=== PATIENT | male | born 1935 | race Caucasian/White ===

== ENCOUNTER 2018-12-22 00:05 | Inpatient (IN) | payer MEDICARE, OTHER ==
[~2018-12-22] VITALS: Ht 177.8 cm; Wt 93.9 kg
[~2018-12-22 00:05] MED LIST: ASPERDRINK81 MG PO; CIPRO500 MG PO; FLOMAX0.4 MG PO; HYDROCODONE-AP1 EAC6 PO; KEFLEX500 MG PO; PRILOSEC 10MG C10 MG PO; ZOCOR40 MG PO; ZOFRAN ODT4 MG SUBLING
[2018-12-22 00:06] VITALS: BP 117/62
[2018-12-22 00:26] LABS: ABSOLUTE LYMPHOCYTES 0.3 thou/uL (0.8-5.3); ABSOLUTE MONOCYTES 0.6 thou/uL (0.0-1.2); ABSOLUTE NEUTROPHILS 4.3 thou/uL (1.6-8.1); BASOPHILS 0.2 %; EOSINOPHILS 0.1 %; HEMATOCRIT 36.5 % (42.0-52.0); HEMOGLOBIN 12.2 gm/dL (14.0-18.0); LYMPHOCYTES 5.2 %; MCH 29.7 pg (26.0-34.0); MCHC 33.4 g/dL (28.0-37.0); MCV 88.7 fL (80.0-100.0); MONOCYTES 12.4 %; MPV 8.9 fl. (7.2-11.1); NUCLEATED RBCS 0 /100WBC; PLATELET COUNT* 145 thou/uL (150-400); POLYS 82.1 %; RBC 4.11 mil/uL (4.50-6.00); RDW-CV 13.6 % (10.5-14.5); WBC 5.2 thou/uL (4.0-11.0)
[2018-12-22 00:39] LABS: APTT 25.2 Seconds (25.0-31.3); PROTIME 10.7 Seconds (9.20-11.50)
[2018-12-22 00:47] LABS: CALCIUM 8.4 mg/dL (8.5-10.1); CREATININE 1.1 mg/dL (0.6-1.3); POTASSIUM 3.9 mmol/L (3.5-5.1)
[2018-12-22 00:59] LABS: ALBUMIN 3.4 g/dL (3.4-5.0); TOTAL BILIRUBIN 0.8 mg/dL (<0.1-1.0); TOTAL PROTEIN 5.9 g/dL (6.4-8.2); TROPONIN-I LEVEL 0.08 ng/mL (<0.06)
[2018-12-22 01:11] LABS: URINE BILIRUBIN NEGATIVE (Negative); URINE BLOOD NEGATIVE (Negative); URINE CLARITY CLEAR; URINE COLOR YELLOW; URINE GLUCOSE-RANDOM NEGATIVE (Negative); URINE KETONES 1+ (Negative); URINE LEUKOCYTES-REFLEX NEGATIVE (Negative); URINE NITRITE-REFLEX NEGATIVE (Negative); URINE PROTEIN NEGATIVE (Negative); URINE UROBILINOGEN 0.2 E.U./dl (0.2-1.0)
[2018-12-22 03:14] VITALS: BP 132/72
[2018-12-22] MEDS ORDERED: ASPIRIN325 PO (03:57)
[2018-12-22] MEDS ORDERED: LATANOPROST2.5 ML OPHTHALMIC (03:59)
[2018-12-22 04:00] VITALS: BP 110/78
[2018-12-22] MEDS ORDERED: XALATAN2.5 ML OPHTHALMIC (04:00)
--- NOTE | 2018-12-22 06:28 | NUR ---
RECEIVED REPORT FROM ED RM. PT TRANSFERRED TO 212. PT A&OX4. HARD OF HEARING. VSS. TELEPHONE ORDER SUPERVISOR IN PLACE. ADMISSION HISTORY & PHYSICAL ASSESSMENT COMPLETED AND CHARTED. ORIENTED TO ROOM & CALL LIGHT. PT TRACING SR PACS ON TELE. PT UPSTANDBY TO RESTROOM. INSTRUCTED ON NPO POST MIDNIGHT FOR CARDIO CONSULT. CALL LIGHT WITHIN REACH.
[2018-12-22 07:10] VITALS: BP 101/60; BP 104/81; BP 107/58
--- NOTE | 2018-12-22 09:58 | NUR ---
Pt is A&O. Resides at home alone. Independent and active. Pt has a walker and cane that he can use if needed, has not needed to use yet. No o2. No hx of HH or SNF. Supportive children that are involved in POC. Goal is home at dc, no needs anticipated.
--- NOTE | 2018-12-22 11:02 | NUR ---
INITAL ASSESSMENT COMPLETED CHARTED. VSS. TRACING SA WITH PVC'S AND PAC'S ON MONITOR. PT DENIES PAIN, CP, SOA, N/V/D, DIZZINESS. ORTHOSTATIC B/P'S NEGATIVE. PT TITRATED DOWN TO 1 LPM AT THIS TIME. NO FURTHER NEEDS AT THIS TIME. HOURLY ROUNDING AND FALL PRECAUTIONS IN PLACE FOR PT SAFETY. CLWR.
[2018-12-22 14:30] VITALS: BP 104/47
--- NOTE | 2018-12-22 15:05 | NUR ---
RADIOLOGIST CALLED AND INFORMED Herminio CAMPOS THAT PT CT SCAN SHOWED LEFT SUBDERAL HEMATOMA. Herminio CAMPOS RELAYED THAT INFORMATION TO THIS NURSE AT THAT TIME. DR. CARRINGTON (FORMERLY RUBEN) ON THE UNIT AND NOTIFIED WELL AT THAT TIME THAT RADIOLOSIST NEEDED HIM TO READ CT SYLVAIN, DR. CARRINGTON ACKNOWLEDGED.
--- NOTE | 2018-12-22 15:12 | NUR ---
DR. ESCOBEDO NOTIFIED OF NERUOLOGY RECOMMENDATIONS.
[2018-12-22 20:00] VITALS: BP 102/55
[2018-12-23] VITALS (7 sets, daily range): BP systolic 100–124; BP diastolic 51–88
[2018-12-23 05:18] LABS: HEMATOCRIT 30.2 % (42.0-52.0); HEMOGLOBIN 10.3 gm/dL (14.0-18.0); MCH 30.4 pg (26.0-34.0); MCHC 34.2 g/dL (28.0-37.0); MCV 88.9 fL (80.0-100.0); MPV 8.9 fl. (7.2-11.1); RBC 3.4 mil/uL (4.50-6.00); RDW-CV 13.7 % (10.5-14.5); WBC 4.5 thou/uL (4.0-11.0)
--- NOTE | 2018-12-23 05:20 | NUR ---
PT ALERT ORIENTED. UP TO BR WITH WALKER AND ASSIST OF ONE. PT DIZZY IN BR. PT TOLD TO VOID IN URINAL AT BS. INITAL O2 SAT 89-90% O2 0.5 L NC. O2 SAT UPP TO 92%. L KNEE BRUSING. TELEMETRY SHOWS SB PACS.
[2018-12-23 05:32] LABS: ALBUMIN 2.6 g/dL (3.4-5.0); CALCIUM 7.7 mg/dL (8.5-10.1); CREATININE 1.1 mg/dL (0.6-1.3); MAGNESIUM 1.8 mg/dL (1.8-2.4); POTASSIUM 3.7 mmol/L (3.5-5.1); TOTAL BILIRUBIN 0.9 mg/dL (<0.1-1.0)
--- NOTE | 2018-12-23 10:19 | NUR ---
INITAL ASSESSMENT COMPLETED CHARTED. TRACING SR-SB WITH PAC'S ON MONITOR. PT LEIGHANN PAIN, DIZZINESS, OR SOA THIS A.M. NO NEW CONCERNS AT THIS TIME. HOURLY ROUNDING AND FALL PRECAUTIONS IN PLACE. CLWR.
--- NOTE | 2018-12-23 11:12 | CON ---
[address] [address] CONSULTATION Name: MORGAN GELLER Room: [address] IN M.R.#: [id number] Admission: 12/22/18 Attend Phys: Heriberto Garza MD Discharge: Date of : 35 Report #: [id number] THIS REPORT FOR: //name// CC: Heriberto Londonlando DATE OF SERVICE: 12/22/2018 HISTORY OF PRESENT ILLNESS: This is an 83-year-old male patient who was evaluated by me for a mechanical fall. This patient tends to underplay his symptoms and that makes the evaluation pretty difficult. He indicates that usually his blood pressure runs low. He does not know why it runs low, but he does not take any antihypertensive. Yesterday, he was walking and realized that his knees buckle down. He felt dizzy. The symptom lasted less than 30 minutes and then resolved by itself. He has no associated headaches and he has been feeling back to his baseline since then. He did not have this kind of episode before. REVIEW OF SYSTEMS: Indicate that he has a large bruise on his right knee. He says that it happened a couple of weeks ago, but it was not because of the fall and it is not because of the present episode of falls. He did run some temperature and chills prior to this mechanical fall. He has some elevated troponin, but he is being worked up by Cardiology for that. Otherwise, he feels back to his baseline. His 14-point review of system was carried out. He had some temperature. He had at one time a pvc monitor. He is not certain why the pvc monitor was put in. 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 He has never been able to do an MRI because they are concerned that he has a metal in there. He has a prior history of urinary tract infection. He is not complaining of any ENT, cardiac, respiratory, GI, , musculoskeletal, dermatological, hematological, psychiatric, throat, allergic symptom associated with present symptomatology. PAST MEDICAL HISTORY: Negative for any stroke. FAMILY HISTORY: Negative for any early age stroke. SOCIAL HISTORY: He says he does drink alcohol. He drinks about 1 alcoholic drink a day. His daughter thinks he may be drinking more than that. PHYSICAL EXAMINATION: Indicates he is alert and responsive. He can follow simple commands. His speech, concentration, fund of knowledge and memory is at his baseline. 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 His strength, sensation, reflexes [place] [id number] CONSULTATION Name: MORGAN GELLER SOPHY Room: [address] IN .R.#: [id number] Admission: 12/22/18 Attend Phys: Heriberto Garza MD Discharge: Date of : 35 Report #: [id number] had some injury to the Achilles tendon in the past. There is no cerebellar sign. I could not look at the fundus on the left side. There is no meningeal sign. He is moderately built individual who does not have any dysmorphic features of eyes, ears and face. He has a prosthetic right eye. Cardiac examination is unremarkable. No respiratory difficulty or rhonchi was noticed. No thyroid mass is present. Pulses are palpable. Blood pressure is 104/81, pulse is 88, and temperature is 98. LABORATORY DATA: Indicate a white count of 5.2. He has been afebrile here. He did not have any imaging study of the brain, but his CT scan and carotid Doppler is pending. IMPRESSION: The most likely scenario in this patient is that his blood pressure is low in the baseline. It probably became low if he did have some temperature and caused this symptom, but we need to exclude the possibility that he does not have any stenosis in any of the large vessels intracranially or extracranially, which became symptomatic with hypertension. I discussed that aspect with the patient. He cannot have an MRI because he has the metal, which is unknown in his eye. He has been told that before. I think we will just check a carotid Doppler and see what it shows. If there is a need for it, we will do a CT angiogram, but presently hold because he just had the dye for another CT looking for any dissection. The patient is agreeable with this plan and he wants to follow this plan. this addendum is being added at the time of signing this note. 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 I talked to Dr. Amin and the nurses. The plan was to back to the neurosurgeon at [place]. The last I talked to Dr. Amin he indicated that he is going to transfer the patient to [facility] under neurosurgery. Time spent 50 minutes. More than 25 minutes counseling and coordinating the patient's care Thank you very much for this referral and if you have any question, please feel free to contact me. <ELECTRONICALLY SIGNED> By: Sravan Kwon MD 12/23/18 1112 1411 58Sravan Kwon MD /nt
--- NOTE | 2018-12-23 14:19 | 2DMMODE ---
[place] [address] 2 D/M-MODE ECHOCARDIOGRAM Name: JENNIFERMORGAN Room: [address] IN [facility]#: [id number] Admission: 12/22/18 Attend Phys: Heriberto Garza, Discharge: Date of : 35 Date of Service: 12/23/18 1419 Report #: [id number] THIS REPORT FOR: //name// APPROVED REPORT Study performed: 12/23/2018 11:40:26 EXAM: Comprehensive 2D, Doppler, and color-flow Echocardiogram Patient Location: In-Patient Room #: [facility] Status: routine BSA: 2.12 HR: 46 bpm BP: 100/51 mmHg Rhythm: NSR Other Information Study Quality: Good Indications Arrhythmia Elevated Troponin Near syncope 2D Dimensions IVSd: 12.79 (7-11mm) LVOT Diam: 23.56 (18-24mm) LVDd: 53.52 mm PWd: 9.99 (7-11mm) Ascending Ao: 40.10 (22-36mm) LVDs: 41.42 (25-40mm) Aortic Root: 39.81 mm Volumes Left Atrial Volume (Systole) LA ESV Index: 53.00 mL/m2 Aortic Valve AoV Peak Negrito.: 1.45 m/s AO Peak Gr.: 8.41 mmHg LVOT Max P.78 mmHg AO Mean Gr.: 4.39 mmHg LVOT Mean P.50 mmHg LVOT Max V: 1.09 m/s AO V2 VTI: 31.93 cm LVOT Mean V: 0.73 m/s YANELY (VTI): 3.71 cm2 LVOT V1 VTI: 27.20 cm AI Lawrence: 1.29 m/s2 AI PHT: 713.93 [place] [address] 2 D/M-MODE ECHOCARDIOGRAM Name: MORGAN GELLER Room: [address] IN [facility].#: [id number] Admission: 12/22/18 Attend Phys: Heriberto Garza, Discharge: Date of : 35 Date of Service: 12/23/18 1419 Report #: [id number] Mitral Valve E/A Ratio: 0.99 MV Decel. Time: 232.06 ms MV E Max Negrito.: 0.94 m/s MV PHT: 67.30 ms MVA (PHT): 3.27 cm2 TDI E/Lateral E': 9.40 E/Medial E': 13.43 Medial E' Negrito.: 0.07 m/s Lateral E' Negrito.: 0.10 m/s Pulmonary Valve PV Peak Negrito.: 0.84 m/s PV Peak Gr.: 2.82 mmHg Tricuspid Valve RAP Estimate: 10.00 mmHg TR Peak Gr.: 27.96 mmHg RVSP: 38.00 mmHg PA Pressure: 38.00 mmHg Left Ventricle The left ventricle is normal size. There is mild global hypokinesis of the left ventricle.The inferior segment is moderately hypokinetic. There is normal left ventricular wall thickness. Left ventricular systolic function is mildly decreased. LVEF is 45%. The left ventricular diastolic function is normal. Right Ventricle Right ventricle is dilated. The right ventricular systolic function is normal. Atria Left atrium is severely dilated. Right atrium is dilated. Aortic Valve The aortic valve is normal in structure. Mild aortic regurgitation. There is no aortic valvular stenosis. Mitral Valve The mitral valve is normal in structure. Mild mitral regurgitation. No evidence of mitral valve stenosis. Tricuspid Valve The tricuspid valve is normal in structure. Mild tricuspid regurgitation. [place] [address] 2 D/M-MODE ECHOCARDIOGRAM Name: MORGAN GELLER Room: [address]#: [id number] Admission: 12/22/18 Attend Phys: Heriberto Garza, Discharge: Date of : 35 Date of Service: 12/23/18 1419 Report #: [id number] Pulmonic Valve The pulmonary valve is normal in structure. There is no pulmonic valvular regurgitation. Great Vessels The aortic root is normal in size. IVC is dilated. Pericardium There is no pericardial effusion. <Conclusion> LVEF is 45%. There is mild global hypokinesis of the left ventricle.The inferior segment is moderately hypokinetic. Left atrium is severely dilated. There is no aortic valvular stenosis. Mild aortic regurgitation. Mild mitral regurgitation. No evidence of mitral valve stenosis. <ELECTRONICALLY SIGNED> By: Raji Nova MD, FACC 12/23/18 1419 1419 1419 Raji Nova MD, FACC /INF
--- NOTE | 2018-12-23 14:27 | EKG ---
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: BRIGETTE : 1935 Requested By: Joe Solomon Order Number: [id number] MD: Raji Nova Measurements Intervals [place] Rate: 91 P: 22 LA: 162 QRS: -61 QRSD: 120 T: 93 QT: 364 QTc: 448 Interpretive Statements Sinus rhythm Left anterior fascicular block Nonspecific T abnormalities, lateral leads Compared to ECG 11/05/2013 10:14:51 T-wave abnormality now present Sinus tachycardia no longer present Electronically Signed On 12-23-2018 14:27:12 CDT by Raji Nova [email or web address] <ELECTRONICALLY SIGNED> By: Raji Nova MD, FAC 12/23/18 1427 0033 0033 Raji Nova MD, FAC /EPI
[2018-12-24] VITALS (7 sets, daily range): BP systolic 100–120; BP diastolic 50–82
[2018-12-24 05:05] LABS: HEMATOCRIT 31.1 % (42.0-52.0); HEMOGLOBIN 10.8 gm/dL (14.0-18.0); MCH 30.6 pg (26.0-34.0); MCHC 34.6 g/dL (28.0-37.0); MCV 88.4 fL (80.0-100.0); MPV 9.4 fl. (7.2-11.1); RBC 3.52 mil/uL (4.50-6.00); RDW-CV 13.3 % (10.5-14.5); WBC 3.6 thou/uL (4.0-11.0)
[2018-12-24 05:08] LABS: CALCIUM 7.7 mg/dL (8.5-10.1); MAGNESIUM 1.8 mg/dL (1.8-2.4); POTASSIUM 3.9 mmol/L (3.5-5.1)
--- NOTE | 2018-12-24 06:30 | NUR ---
VITALS STABLE,TMAX 99.4F. INTERMITTENT SLEEP THROUGH THE NIGHT. ABLE TO USE WALKER TO USE BATHROOM. PATIENT VERY EMOTIONAL, TEARFUL WHEN TALKING ABOUT THAT A COUPLE OF MONTHS AGO. REPORTS HE WAS PUT ON ANTIDEPRESSANT MEDICATION AND A GRIEF COUSELOR COMES TO HIS HOUSE PER HIS DOCTOR. OTHERWISE NO CONCERNS. ABLE TO USE CALL LIGHT. ABLE TO TURN SELF IN BED.
--- NOTE | 2018-12-24 10:38 | NUR ---
Spoke with Pt's dtr regarding disposition. Dtr plans on staying with Pt for a few days post dc and wants Pt to have [facility] HH. Initial referral sent to [facility], they are able to accept. DC orders to be faxed once available [phone]
--- NOTE | 2018-12-24 17:43 | NUR ---
12/24 Days: Hem-Onc consult. Plan for discharge tomorrow if cleared by Hem-Onc, discharge orders in chart from hospitalist. Mobility increased today, patient states he feels closer to his baseline. Abdominal US in morning, patient to be NPO after midnight, restart diet after. Bed alarm off when family in room, has been call light appropriate.
[2018-12-25] VITALS (8 sets, daily range): BP systolic 83–142; BP diastolic 50–82
[2018-12-25 05:34] LABS: HEMATOCRIT 34.6 % (42.0-52.0); HEMOGLOBIN 11.5 gm/dL (14.0-18.0); MCH 29.3 pg (26.0-34.0); MCHC 33.1 g/dL (28.0-37.0); MCV 88.4 fL (80.0-100.0); MPV 9.4 fl. (7.2-11.1); RBC 3.91 mil/uL (4.50-6.00); RDW-CV 13.7 % (10.5-14.5); WBC 2.9 thou/uL (4.0-11.0)
[2018-12-25 05:39] LABS: PROTIME 10.7 Seconds (9.20-11.50)
[2018-12-25 05:55] LABS: ALBUMIN 2.8 g/dL (3.4-5.0); CREATININE 0.9 mg/dL (0.6-1.3); TOTAL BILIRUBIN 0.6 mg/dL (<0.1-1.0); TOTAL PROTEIN 5.4 g/dL (6.4-8.2)
[2018-12-25 18:47] LABS: URINE BILIRUBIN NEGATIVE (Negative); URINE BLOOD 3+ (Negative); URINE CLARITY CLEAR; URINE COLOR YELLOW; URINE GLUCOSE-RANDOM NEGATIVE (Negative); URINE KETONES NEGATIVE (Negative); URINE LEUKOCYTES NEGATIVE (Negative); URINE NITRITE NEGATIVE (Negative); URINE PROTEIN NEGATIVE (Negative); URINE UROBILINOGEN 0.2 E.U./dl (0.2-1.0)
[2018-12-25 18:54] LABS: MUCUS None Seen strn/LPF (None Seen); SQUAMOUS NONE SEEN /LPF (0-3)
[2018-12-25 18:55] LABS: CASTS None Seen /LPF (None Seen); CRYSTALS None Seen /LPF (None Seen); URINE WBC None Seen /HPF (0-5)
[2018-12-25 18:56] LABS: BACTERIA None Seen /HPF (None Seen)
--- NOTE | 2018-12-25 19:46 | NUR ---
ASSUMED PT CARE AT 0730, PT ASLEEP THIS AM, NPO FOR ABD US. PT WAS TAKEN FOR TEST AT APPROX 0800. PT RETRURED TO ROOM AT APPROX 0900. PT PROVIDED WITH BREAKFAST AND ASSEMENT DONE CHARTED. PT DENIES PAIN AT THIS TIME. VSS, SR ON THE MONITOR. PT STARTED HAVING AN EPISODE OF RIGHT SIDE FACIAL DROOP AND SLURRED SPEECH. NOTIFIED. NEW ORDERS RECIEVED. NIH DONE CHARTED. PTS SX RESOLVED W/I 5 MIN. PT ATTEMPTED MULTIPLE TIMES TO VOID, WAS UNABLE TO GET MORE THAN 20 MLS OUT AT A TIME. UROLOGY CONSULTED BLADDER SCAN PERFOMED WITH 650MLS RESIDUAL. ATTEMPTED TO PLACE CATHETER, UNSUCCESSFUL. SPOKE TO UROLOGY SUPERVISOR PUMPING. DR NAVA IN TO SEE PT THIS EVENING WHO PLACE A SUPRAPUBIC CATHETER. PT TOLERATED PROCEDURE WELL. DENIES NEED FOR PAIN MEDS. DRAINED APPROX 900ML POST PROCEDURE W/I 1 HR. PTS DTR UPDATED. VSS, REMAINS SR ON THE MONITOR. IVF RUNNING 80 ML/HR. PT UP WITH ASSIST/WALKER, PT USING CALL LIGHT APROPRIATLY NEEDING SOME REMINDERS. REPORT GIVEN TO DYLLAN TIM.
[2018-12-26] VITALS (7 sets, daily range): BP systolic 91–126; BP diastolic 43–68
--- NOTE | 2018-12-26 04:53 | NUR ---
ASSUMED PT CARE AT APPROX 1930. PT IS AWAKE AND ORIENTED X4, CAN BE FORGETFUL AT TIMES. VSS ON ROOM AIR. WELDING ROBOT OPERATOR IN PLACE TRACING SR BBB. PT C/O BACK PAIN RELIEVED BY DILAUDID GIVEN PER SEP. SUPRA PUBIC CATHETER INTACT AND DRAINING WELL, NOTED MINIMAL BLEEDING ON INSERTION SITE. FALLS PRECAUTIONS IN PLACE. CALL LIGHT WITHIN REACH. HOURLY ROUNDING DONE FOR PT SAFETY.
[2018-12-26 04:55] LABS: HEMATOCRIT 32.8 % (42.0-52.0); HEMOGLOBIN 10.6 gm/dL (14.0-18.0); MCHC 32.4 g/dL (28.0-37.0); MCV 89.5 fL (80.0-100.0); MPV 9.3 fl. (7.2-11.1); RBC 3.67 mil/uL (4.50-6.00)
[2018-12-26 05:28] LABS: ALBUMIN 2.5 g/dL (3.4-5.0); CALCIUM 8.3 mg/dL (8.5-10.1); CREATININE 1.1 mg/dL (0.6-1.3); POTASSIUM 3.9 mmol/L (3.5-5.1); TOTAL BILIRUBIN 0.5 mg/dL (<0.1-1.0); TOTAL PROTEIN 4.9 g/dL (6.4-8.2)
[2018-12-26 06:01] LABS: WBC 1.8 thou/uL (4.0-11.0)
[2018-12-27] VITALS (10 sets, daily range): BP systolic 92–123; BP diastolic 50–87
--- NOTE | 2018-12-27 05:15 | NUR ---
ASSUMED PT CARE AT APPROX 1930. PT IS AWAKE AND ORIENTED X4. VSS ON ROOM AIR. STORE CASHIER IN PLACE TRACING SR. REASSESSMENT DONE AND CHARTED. SUPRAPUBIC CATHETER IS NOTED TO BE LEAKNG ON THE INSERTION SITE. CATHETER IS DRAINING WELL, FLUSHED/DEFLATED/REINFLATED BALLOON, BUT IS STILL LEAKING. WILL CONTACT UROLOGY IN THE MORNING. DRESSING KEPT DRY. CALL LIGHT WITHIN REACH. HOURLY ROUNDING DONE FOR PT SAFETY.
[2018-12-27 05:32] LABS: CALCIUM 8.9 mg/dL (8.5-10.1); CREATININE 0.9 mg/dL (0.6-1.3); MAGNESIUM 1.9 mg/dL (1.8-2.4); POTASSIUM 4.2 mmol/L (3.5-5.1)
[2018-12-27 05:48] LABS: HEMATOCRIT 34.9 % (42.0-52.0); HEMOGLOBIN 11.8 gm/dL (14.0-18.0); MCH 29.7 pg (26.0-34.0); MCHC 33.7 g/dL (28.0-37.0); MCV 88.2 fL (80.0-100.0); MPV 9.4 fl. (7.2-11.1); RBC 3.96 mil/uL (4.50-6.00)
--- NOTE | 2018-12-27 10:00 | NUR ---
PT ASSESSMENT COMPLETED CHARTED. VSS. SB-SR ON MONITOR. PT CAN BE TEARFUL AT TIMES. PT LEIGHANN PAIN. HOURLY ROUNDING AND FALL PRECAUTIONS IN PLACE FOR PT SAFETY. CLWR.
--- NOTE | 2018-12-27 16:33 | EEG ---
[address] [address] EEG STUDY REPORT Name: MORGAN GELLER Room: [address]#: [id number] Admission: 12/22/18 Attend Phys: eHriberto Garza MD Discharge: Date of : 35 Report #: [id number] THIS REPORT FOR: //name// CC: Heriberto Michele HISTORY: The patient is an 83-year-old male with altered mental status. An EEG is requested to rule out seizure disorder. DESCRIPTION: The awake record consists of symmetric low amplitude 10 cycles per second posterior dominant rhythm, which is not well formed and is obscured by low amplitude 20-25 cycles per second activity throughout the recording, but predominant over the frontocentral head region. Stage I sleep is characterized by attenuation of the background record. Photic stimulation is non-activating. No focal abnormalities or epileptiform discharges are noted. There is no evidence of seizure activity. <ELECTRONICALLY SIGNED> By: Marine Figueroa DO 12/27/18 1633 1420 1839Marine Figueroa DO /nt
[2018-12-28] VITALS (8 sets, daily range): BP systolic 96–125; BP diastolic 60–73
--- NOTE | 2018-12-28 03:48 | NUR ---
ASSUMED PT CARE AT APPROX 1930. PT IS AWAKE AND ORIENTED X4. VSS ON ROOM AIR. TRACING SR/SB WITH BBB ON TELE. PT DENIES PAIN. REASSESSMENT DONE AND CHARTED. SUPRAPUBIC CATHETER PATENT AND DRAINING WELL BUT IS STILL LEAKING ON INSERTION SITE. UROLOGIST AWARE. SITE KEPT DRY AND CLEAN. PT REPORTED SOME BRIEF TINGLING SENSATION ON HIS RIGHT HAND AND NUMBNESS ON THE RIGHT SIDE OF HIS FACE AT APPROX 0230. NIH PERFORMED CHARTED. CLOSELY MONITORED. NEEDS ATTENDED. FALL PRECAUTIONS IN PLACE. CALL LIGHT WITHIN REACH. HOURLY ROUNDING DONE FOR PT SAFETY.
[2018-12-28 05:03] LABS: HEMATOCRIT 34.6 % (42.0-52.0); HEMOGLOBIN 11.3 gm/dL (14.0-18.0); MCH 29.3 pg (26.0-34.0); MCHC 32.7 g/dL (28.0-37.0); MCV 89.4 fL (80.0-100.0); MPV 8.8 fl. (7.2-11.1); RBC 3.87 mil/uL (4.50-6.00); RDW-CV 13.9 % (10.5-14.5)
[2018-12-28 05:41] LABS: ALBUMIN 2.6 g/dL (3.4-5.0); CALCIUM 8.8 mg/dL (8.5-10.1); CREATININE 1.1 mg/dL (0.6-1.3); POTASSIUM 3.7 mmol/L (3.5-5.1); TOTAL BILIRUBIN 0.4 mg/dL (<0.1-1.0); TOTAL PROTEIN 5.2 g/dL (6.4-8.2)
[2018-12-28 05:50] LABS: WBC 1.3 thou/uL (4.0-11.0)
--- NOTE | 2018-12-28 10:00 | NUR ---
INITIAL ASSESSMENT COMPLETED CHARTED. VSS. TRACING SB-SR ON MONITOR. PT DENIES PAIN. NO "EPISODES" THUS FAR THIS DAY. MINIMAL LEAKAGE FROM SUPRAPUBIC CATH. HOURLY ROUNDING AND FALL PRECAUTIONS IN PLACE. CLWR.
[2018-12-29] VITALS (8 sets, daily range): BP systolic 90–124; BP diastolic 55–75
--- NOTE | 2018-12-29 04:25 | NUR ---
ASSUMED PT CARE AT APPROX 1930. PT IS AWAKE AND ORIENTED X4. VSS ON ROOM AIR. NO DESATURATIONS NOTED. LINEN FOLDER IN PLACE TRACING SB-BBB. ASSESSMENT DONE AND CHARTED. SUPRAPUBIC CATHETER STILL LEAKING, DR BAUTISTA AWARE. PT KEPT CLEAN AND DRY. PT WAS ABLE TO SLEEP MOST OF THE NIGHT. CALL LIGHT WITHIN REACH. HOURLY ROUNDING DONE FOR PT SAFETY.
[2018-12-29 04:38] LABS: HEMATOCRIT 34.6 % (42.0-52.0); HEMOGLOBIN 11.4 gm/dL (14.0-18.0); MCH 29.4 pg (26.0-34.0); MCHC 33.1 g/dL (28.0-37.0); MCV 88.8 fL (80.0-100.0); MPV 8.3 fl. (7.2-11.1); RBC 3.89 mil/uL (4.50-6.00); RDW-CV 13.9 % (10.5-14.5)
[2018-12-29 05:03] LABS: WBC 1.7 thou/uL (4.0-11.0)
[2018-12-29 05:14] LABS: CALCIUM 8.8 mg/dL (8.5-10.1); CREATININE 1.1 mg/dL (0.6-1.3); MAGNESIUM 1.8 mg/dL (1.8-2.4); POTASSIUM 3.6 mmol/L (3.5-5.1)
--- NOTE | 2018-12-29 14:22 | NUR ---
Nutrition: screen for LOS. Wt stable. Prelabumin low but improved. Meds reviewed. No intake records. No note of acute nutrition concerns. Pt sleeping soundly at visit. Assessed at low nutrition risk at this time.
[2018-12-30 00:41] VITALS: BP 128/69
[2018-12-30 05:18] VITALS: BP 120/54
[2018-12-30 05:32] LABS: HEMATOCRIT 35.4 % (42.0-52.0); HEMOGLOBIN 11.9 gm/dL (14.0-18.0); MCH 29.7 pg (26.0-34.0); MCHC 33.6 g/dL (28.0-37.0); MCV 88.4 fL (80.0-100.0); MPV 8.9 fl. (7.2-11.1); RDW-CV 13.7 % (10.5-14.5)
--- NOTE | 2018-12-30 05:45 | NUR ---
ASSUMED PATIENT CARE AT 1900. PATIENT ALERT AND ORIENTED TIMES FOUR. NO COMPLAINTS OF PAIN OR DISCOMFORT NOTED. MELTER CASTER AND HOURLY ROUNDING COMPLETED DOCUMENTED.
[2018-12-30 05:48] LABS: WBC 1.5 thou/uL (4.0-11.0)
[2018-12-30 05:54] LABS: ALBUMIN 2.8 g/dL (3.4-5.0); POTASSIUM 3.7 mmol/L (3.5-5.1); TOTAL BILIRUBIN 0.4 mg/dL (<0.1-1.0); TOTAL PROTEIN 5.3 g/dL (6.4-8.2)
[2018-12-30 08:00] VITALS: BP 115/55
[2018-12-30 11:39] VITALS: BP 101/63
[2018-12-30 12:39] VITALS: BP 100/54
--- NOTE | 2018-12-30 12:41 | NUR ---
Pt discharging to dtr's home today in [place], dtr's [address] is [address] [place] [address]. Dtr to orange picking supervisor at 4pm, updated nurse. DPOA completed, copy on Pt's chart. HH arranged through [facility], orders and referral faxed p:[phone] f:[phone]
[2018-12-30] MEDS ORDERED: OXYBUTYNIN 5 MG5 M2 PO (13:50)
[2018-12-30] MEDS ORDERED: LAMICTAL100 MG PO (13:52)
[2018-12-30] MEDS ORDERED: APAP650 PO (13:57)
[2018-12-30 13:58] VITALS: BP 100/54
--- NOTE | 2018-12-30 14:51 | NUR ---
ASSUMED PT CARE AT 0800. AOX4, UP WITH ASSIST, USES WALKER. PT O2 SAT 90'S RA. TRACING SINUS NGUYEN ON PERINATAL EDUCATOR. PT LUNG SOUND CLEAR. PT LAST BM 12/29/18. ABDOMEN SOFT AND ROUND. PT IV ACCESS INTACT. SUPRAPUBIC CATHETER DRAINING WELL. DENIES ANY PAIN. VSS, AM ASSESSMENT CHARTED MEDS GIVEN PER. CALL LIGHT WITHIN REACH. HOURLY ROUNDING. WILL CONTINUE TO MONITOR.
--- NOTE | 2018-12-30 16:24 | OP ---
[address] [address] OPERATIVE REPORT Name: MORGAN GELLER SOPHY Room: [address] IN .R.#: [id number] Admission: 12/22/18 Attend Phys: Heriberto Garza MD Discharge: Date of : 35 Report #: [id number] THIS REPORT FOR: //name// CC: Heriberto Michele SURGEON: Edwin Valdivia MD MILL TENDER SECOND OPERATOR: Jordin, nurse practitioner. PREOPERATIVE DIAGNOSES: Urinary retention, urethral stricture. POSTOPERATIVE DIAGNOSES: Urinary retention, urethral stricture. PROCEDURES: Percutaneous placement of suprapubic tube and attempted cystoscopy. COMPLICATIONS: No complications. INDICATIONS: An 83-year-old white male admitted for confusion. He was unable to void, residual urine 700 mL. He and his daughter agreed to suprapubic catheter placement. They understand the risks. He has had previous abdominal surgery with an appendectomy, but no other bladder or prostate surgery. They understand risks of bleeding, infection and other procedures, cardiovascular and pulmonary complications, the fact that this is a blind procedure and may result in bowel injury. DESCRIPTION OF PROCEDURE: Informed consent was obtained. The patient was sterilely prepped and draped in the supine position. I first attempted a cystoscopy. I could get no further than approximately 1 cm in and then I was able to slide a wire through the channel that was there; however, the wire could not be advanced past the mid urethra. I was unable to dilate the last little bit to get enough traction to perform any other cystoscopy, so I then consulted with the patient and the daughter and we performed suprapubic tube placement without complications. First, I prepped the suprapubic area, anesthetized with lidocaine down to the level of the bladder. I made a 1 cm incision and used a Bard suprapubic tube kit and was able to place the tube with the first pass. We inflated 10 mL in the balloon and the catheter after that slid in easily and also would stop and we pulled it back. Irrigation was completely clear and the urine coming out was light yellow. The patient felt immediate relief. It was then sutured in using 2-0 nylon. The patient tolerated this well and was in no pain after the procedure. <ELECTRONICALLY SIGNED> By: Genaro Frances MD 12/30/18 1624 1830 Walter Valdivia MD /nt
--- NOTE | 2018-12-30 17:00 | NUR ---
DISCHARGED PLAN DISCUSS WITH THE PATIENT AND DAUGHTER. MEDICATION SCRIPT/PACKET GIVEN. REMINDED TO FOLLOW UP WITH PHYSICIANS. TELE, IV REMOVED. ALL BELONGINGS PACKED AND CHECKED. LEFT THE UNIT VIA WHEELCHAIR
--- NOTE | 2019-01-07 13:11 | CON ---
[address] [address] CONSULTATION Name: DUYENMORGANMITCHELL BECKETT Room: [address] IN .R.#: [id number] Admission: 12/22/18 Attend Phys: Heriberto Garza MD Discharge: 12/30/18 Date of : 35 Report #: [id number] THIS REPORT FOR: //name// CC: Heriberto Michele DATE OF SERVICE: 12/22/2018 CHIEF COMPLAINT: Near syncope, fall. HISTORY OF PRESENT ILLNESS: The patient is an 83-year-old man who lives by himself. He presents with a syncopal episode. He fell onto his knees and did not completely lose consciousness. He felt woozy and then used his medical alert device to summons an ambulance and then was brought to the Emergency Room. He presented in a sinus rhythm with sinus arrhythmia and occasional PVCs, but no arrhythmia or heart block was noted. 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 Overnight, he has been receiving IV fluids as he had been treated for probable viral syndrome. He had been having diminished p.o. intake and felt fevers and chills over the weekend. Currently, he is asymptomatic. He denies chest pain, pressure or shortness of breath. He has been somewhat less mobile because of a left lower extremity injury to his Achilles heel and had been wearing a boot for several weeks. He has been having swelling in his leg. He denies orthopnea, PND, chest pressure or tightness. PAST MEDICAL HISTORY: No documented history of heart disease or conduction abnormality. He did wear a cardiac rehabilitation specialist for 30 days, but this was over 10 years ago. He is followed by Dr. Michele from [facility]. He had a venous Doppler of his leg about a year ago for similar complaints of swelling. He has the following past medical history: The aforementioned left Achilles injury, hyperlipidemia, prostatism, acid peptic ulcer disease. HOME MEDICATIONS: Include aspirin, Zocor 40 mg daily, tamsulosin and omeprazole 10 mg. ALLERGIES: He has no known drug allergies. SOCIAL HISTORY: He is a remote smoker. He drinks 3-4 glasses of wine per week. REVIEW OF SYSTEMS: GENERAL: Positive [place]. [place] [address] CONSULTATION Name: MORGAN GELLER SOPHY Room: [address]#: [id number] Admission: 12/22/18 Attend Phys: Heriberto Garza MD Discharge: 12/30/18 Date of : 35 Report #: [id number] EYES: Denies any blurred vision or loss of vision. NEUROLOGIC: Denies seizures. Denies dizziness upon standing. Denies vertigo symptoms. Denies numbness, weakness, visual changes or slurred speech. SKIN: Denies any rash. CARDIOVASCULAR: No chest pain, no palpitation, no dyspnea with exertion, no orthopnea, no PND. RESPIRATORY: He has not been short of breath. Denies cough or hemoptysis. PHYSICAL EXAMINATION: VITAL SIGNS: Blood pressure on presentation was 117/62, pulse was 101 beats per minute, respiratory rate was 18. His weight is 217 pounds. GENERAL: This is a thin elderly male. He is somewhat of a poor historian, but alert, in no apparent distress. NECK: Supple. No jugular venous distention. CARDIOVASCULAR: Regular. I cannot hear a murmur or S3. LUNGS: Clear to auscultation bilaterally. ABDOMEN: Soft, nontender, nondistended. EXTREMITIES: There is no peripheral edema. SKIN: No rashes. IMAGING STUDIES: Chest x-ray shows no cardiopulmonary abnormality. No acute CT evidence of pulmonary embolus. LABORATORY DATA: Hemoglobin is 12.2. Sodium is 136, potassium is 3.9, chloride is 104, BUN is 17, creatinine is 1.1. Troponin I is 0.08, 0.16, 0.25. EKG as noted above shows sinus rhythm, left anterior fascicular block. Normal ST segments. IMPRESSION: 1. Abnormal troponin. I suspect this is probably spurious, but he has borderline resting EKG conduction abnormalities, so I have ordered an echocardiogram. He reports no angina symptoms. Should he have a wall motion abnormality, he will need further testing. 2. Syncope. He has a mild conduction abnormality at rest and his telemetry to date is normal, but he should be wearing a 30-day monitor on discharge. This will be arranged. 3. Left anterior fascicular block. 4. Left lower extremity swelling. We will arrange for a venous Doppler of his left leg. <ELECTRONICALLY SIGNED> By: Raji Nova MD, FACC 01/07/19 1311 1238 [id number] Nova MD, FACC /nt
== END 2018-12-30 17:22 | disposition home health service (06) | DRG 82 ==
LOC: M.ERS 00:05 → M.TBA-ER 01:19 → M.2W 01:19
PROVIDERS: Emergency Medicine Emergency Medical Services; Family Medicine; Nurse Practitioner Adult Health; ADMIT Internal Medicine
PROC: 0T9B30Z Drainage of Bladder with Drainage Device, Percutaneous Approach (ICD-10-PCS; principal; 2018-12-30)
PROC: 0TJB8ZZ Inspection of Bladder, Via Natural or Artificial Opening Endoscopic (ICD-10-PCS; principal; 2018-12-30)
DX: S06.5X9A Traumatic subdural hemorrhage with loss of consciousness of unspecified duration, initial encounter (principal); J96.01 Acute respiratory failure with hypoxia; G93.41 Metabolic encephalopathy; I24.8 Other forms of acute ischemic heart disease; E44.0 Moderate protein-calorie malnutrition; T83.030A Leakage of cystostomy catheter, initial encounter; K44.9 Diaphragmatic hernia without obstruction or gangrene; E78.5 Hyperlipidemia, unspecified; R26.9 Unspecified abnormalities of gait and mobility; R31.29 Other microscopic hematuria; N35.919 Unspecified urethral stricture, male, unspecified site; N28.1 Cyst of kidney, acquired; M50.322 Other cervical disc degeneration at C5-C6 level; D70.9 Neutropenia, unspecified; I95.9 Hypotension, unspecified; R33.9 Retention of urine, unspecified; G43.809 Other migraine, not intractable, without status migrainosus; M50.323 Other cervical disc degeneration at C6-C7 level; I49.3 Ventricular premature depolarization; I10 Essential (primary) hypertension; D69.6 Thrombocytopenia, unspecified; I44.4 Left anterior fascicular block; W18.39XA Other fall on same level, initial encounter; E78.00 Pure hypercholesterolemia, unspecified; H40.9 Unspecified glaucoma; N40.0 Benign prostatic hyperplasia without lower urinary tract symptoms; Z79.82 Long term (current) use of aspirin; Z79.899 Other long term (current) drug therapy; Z84.89 Family history of other specified conditions; Z87.891 Personal history of nicotine dependence; Z85.46 Personal history of malignant neoplasm of prostate; Y92.89 Other specified places as the place of occurrence of the external cause; Y93.89 Activity, other specified; Y99.8 Other external cause status; Z68.29 Body mass index [BMI] 29.0-29.9, adult; Y84.6 Urinary catheterization as the cause of abnormal reaction of the patient, or of later complication, without mention of misadventure at the time of the procedure

== ENCOUNTER 2019-02-06 20:35 | Emergency (ER) | payer MEDICARE, OTHER ==
[~2019-02-06] VITALS: Ht 177.8 cm; Wt 95.9 kg
[~2019-02-06 20:35] MED LIST changes: +APAP650 PO; +ASPIRIN325 PO; +LAMICTAL100 MG PO; +LATANOPROST2.5 ML OPHTHALMIC; +OXYBUTYNIN 5 MG5 M2 PO; +XALATAN2.5 ML OPHTHALMIC
[2019-02-06 21:02] VITALS: BP 120/57
== END 2019-02-06 21:08 | disposition home or self-care (01) ==
LOC: M.ERS 20:35
DX: T83.018A Breakdown (mechanical) of other urinary catheter, initial encounter (principal); N40.0 Benign prostatic hyperplasia without lower urinary tract symptoms; E78.00 Pure hypercholesterolemia, unspecified; Z87.891 Personal history of nicotine dependence

== ENCOUNTER 2020-02-15 23:48 | Emergency (ER) | payer MEDICARE, OTHER ==
[~2020-02-15] VITALS: Ht 177.8 cm; Wt 92.1 kg
[2020-02-16] MEDS ORDERED: [UNRECOGNIZED DRUG - REMARK]
[2020-02-16 00:30] LABS: ABSOLUTE BASOPHILS 0.1 thou/uL (0.0-0.2); ABSOLUTE EOSINOPHILS 0.3 thou/uL (0.0-0.7); ABSOLUTE LYMPHOCYTES 0.8 thou/uL (0.8-5.3); ABSOLUTE MONOCYTES 0.5 thou/uL (0.0-1.2); ABSOLUTE NEUTROPHILS 3.3 thou/uL (1.6-8.1); EOSINOPHILS 5.2 %; HEMATOCRIT 31.2 % (42.0-52.0); HEMOGLOBIN 10.2 gm/dL (14.0-18.0); LYMPHOCYTES 15.7 %; MCH 26.7 pg (26.0-34.0); MCHC 32.6 g/dL (28.0-37.0); MONOCYTES 10.6 %; MPV 8.6 fl. (7.2-11.1); NUCLEATED RBCS 0 /100WBC; PLATELET COUNT* 157 thou/uL (150-400); POLYS 67.5 %; RBC 3.81 mil/uL (4.50-6.00); RDW-CV 16.7 % (10.5-14.5); WBC 4.9 thou/uL (4.0-11.0)
[2020-02-16 00:35] LABS: CALCIUM 8.8 mg/dL (8.5-10.1); CREATININE 1.2 mg/dL (0.6-1.3); POTASSIUM 3.9 mmol/L (3.5-5.1)
[2020-02-16 00:39] LABS: PROTIME 10.6 Seconds (9.20-11.50)
[2020-02-16 00:42] LABS: URINE BILIRUBIN NEGATIVE (Negative); URINE BLOOD 2+ (Negative); URINE CLARITY CLEAR; URINE COLOR STRAW; URINE GLUCOSE-RANDOM NEGATIVE (Negative); URINE KETONES NEGATIVE (Negative); URINE NITRITE-REFLEX NEGATIVE (Negative); URINE PROTEIN NEGATIVE (Negative); URINE SPECIFIC GRAVITY 1.015 (1.005-1.030); URINE UROBILINOGEN 0.2 E.U./dl (0.2-1.0)
[2020-02-16 00:44] LABS: URINE LEUKOCYTES-REFLEX 2+ (Negative)
[2020-02-16 00:46] LABS: ALBUMIN 3.6 g/dL (3.4-5.0); MAGNESIUM 1.9 mg/dL (1.8-2.4); TOTAL BILIRUBIN 0.5 mg/dL (<0.1-1.0)
[2020-02-16 01:09] LABS: CASTS None Seen /LPF (None Seen); SQUAMOUS NONE SEEN /LPF (0-3); URINE WBC-REFLEX >25 Many /HPF (0-5)
[2020-02-16 01:10] LABS: BACTERIA-REFLEX 1-9 Few /HPF (None Seen); CRYSTALS None Seen /LPF (None Seen); URINE RBC 3-10 Few /HPF (0-2); WBC CLUMPS Few (None Seen)
[2020-02-16 03:05] VITALS: BP 123/59
--- NOTE | 2020-02-16 09:44 | EKG ---
[place] [address] ELECTROCARDIOGRAM REPORT Name: MORGAN GELLER Room: 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 <ELECTRONICALLY SIGNED> By: Florentin Guerra MD, FACC 02/16/20 0944 2353 2353 Florentin Guerra MD, FACC /EPI
== END 2020-02-16 03:05 | disposition home or self-care (01) ==
LOC: M.ERS 23:48
PROVIDERS: Emergency Medicine
DX: R07.89 Other chest pain (principal); E78.00 Pure hypercholesterolemia, unspecified; Z87.891 Personal history of nicotine dependence

== ENCOUNTER → 2020-03-15 | Outpatient (CLI) | payer MEDICARE, OTHER ==
[~2020-03-15] MED LIST changes: +[UNRECOGNIZED DRUG - REMARK]
--- NOTE | 2020-03-15 17:36 | 2DMMODE ---
[place] [address] 2 D/M-MODE ECHOCARDIOGRAM Name: MORGAN GELLER SOPHY Room: [facility]#: [id number] Admission: 03/15/20 Attend Phys: Florentin Guerra, Discharge: Date of : 35 Date of Service: 03/15/20 1735 Report #: [id number] THIS REPORT FOR: cc: Herb Michele MD, Louis A. MD Liston, Michael J. MD [facility] ~ APPROVED REPORT Study performed: 03/15/2020 12:53:37 EXAM: Comprehensive 2D, Doppler, and color-flow Echocardiogram Patient Location: Out-Patient BSA: 2.04 HR: 64 bpm BP: 142/80 mmHg Other Information Study Quality: Good Indications Cardiomyopathy Chest Pain 2D Dimensions IVSd: 11.68 (7-11mm) LVOT Diam: 20.79 (18-24mm) LVDd: 50.74 mm PWd: 10.06 (7-11mm) Ascending Ao: 36.23 (22-36mm) LVDs: 40.29 (25-40mm) Aortic Root: 31.44 mm Volumes Left Atrial Volume (Systole) LA ESV Index: 29.60 mL/m2 Aortic Valve AoV Peak Negrito.: 1.39 m/s AO Peak Gr.: 7.77 mmHg LVOT Max P.25 mmHg AO Mean Gr.: 4.03 mmHg LVOT Mean P.17 mmHg LVOT Max V: 1.03 m/s AO V2 VTI: 27.23 cm LVOT Mean V: 0.68 m/s YANELY (VTI): 3.01 cm2 LVOT V1 VTI: 24.15 cm AI [place]: 1.38 m/s2 AI PHT: 659.23 [place] [address] 2 D/M-MODE ECHOCARDIOGRAM Name: MORGAN GELLER Room: [facility]#: [id number] Admission: 03/15/20 Attend Phys: Florentin Guerra, Discharge: Date of : 35 Date of Service: 03/15/20 1735 Report #: [id number] Mitral Valve E/A Ratio: 0.63 MV Decel. Time: 256.92 ms MV E Max Negrito.: 0.58 m/s MV PHT: 74.51 ms MVA (PHT): 2.95 cm2 TDI E/Lateral E': 11.60 E/Medial E': 14.50 Medial E' Negrito.: 0.04 m/s Lateral E' Negrito.: 0.05 m/s Pulmonary Valve PV Peak Negrito.: 0.87 m/s PV Peak Gr.: 3.01 mmHg Tricuspid Valve RAP Estimate: 5.00 mmHg TR Peak Gr.: 22.72 mmHg RVSP: 27.72 mmHg PA Pressure: 27.72 mmHg Left Ventricle The left ventricle is normal size. The basal to mid inferior and basal lateral wall appear severely hypokinetic to akinetic. There is normal left ventricular wall thickness. Left ventricular systolic function is mildly decreased. LVEF is 45-50%. Grade I - abnormal relaxation pattern. Right Ventricle The right ventricle is normal size. The right ventricular systolic function is normal. Atria The left atrium size is normal. The right atrium size is normal. Aortic Valve Mild aortic valve sclerosis. Moderate aortic regurgitation. There is no aortic valvular stenosis. Mitral Valve Mitral valve leaflets are mildly calcified. Mild mitral regurgitation. No evidence of mitral valve stenosis. Tricuspid Valve The tricuspid valve is normal in structure. [place] [address] 2 D/M-MODE ECHOCARDIOGRAM Name: MORGAN GELLER Room: [facility]#: [id number] Admission: 03/15/20 Attend Phys: Florentin Guerra, Discharge: Date of : 35 Date of Service: 03/15/20 1735 Report #: [id number] regurgitation. Pulmonic Valve The pulmonary valve is normal in structure. There is no pulmonic valvular regurgitation. Great Vessels The aortic root is normal in size. IVC is normal in size and collapses >50% with inspiration. Pericardium There is no pericardial effusion. <Conclusion> The left ventricle is normal size. There is normal left ventricular wall thickness. Left ventricular systolic function is mildly decreased. LVEF is 45-50%. Grade I - abnormal relaxation pattern. The basal to mid inferior and basal lateral wall appear severely hypokinetic to akinetic. Moderate aortic regurgitation. Mild mitral regurgitation. Mild tricuspid regurgitation. IVC is normal in size and collapses >50% with inspiration. <ELECTRONICALLY SIGNED> By: Florentin Guerra MD, FACC 03/15/20 1735 1735 1735 Florentin Guerra MD, FACC /INF
--- NOTE | 2020-03-15 17:54 | CARDNUC ---
[place] [address] CARDIAC NUCLEAR IMAGING REPORT Name: MORGAN GELLER SOPHY Room: [facility]#: [id number] Admission: 03/15/20 Attend Phys: Florentin Guerra, Discharge: Date of : 35 Date of Service: 03/15/20 1753 Report #: [id number] THIS REPORT FOR: cc: Herb Michele MD, Louis A. MD Liston, Michael J. MD [facility] ~ APPROVED REPORT Study performed: 03/15/2020 15:31:16 Exam: Nuclear Stress Test Indication: CARDIOMYOPATHY, CHEST DISCOMFORT. Stress Tech: Amy Barahona Stress Nurse: Fernanda Morrison R.N. 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 Medications: Ecotrin ASA, Simvastatin. Allergies: Nitrofuratoin Cardiac Risk Factors: Age, Hyperlipidemia, Past Smoker, Cardiomyopathy, wall motion abnormality, dilated left atrium, mild regurgitation of Aortic valve, Mitral valve, Tricuspid valve. 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 Meds Held (24 hrs): None Stress Test Details Stress Test: Pharmacologic stress testing performed using 0.4 mg of regadenoson per 5 mL given IV over 10 seconds. Reason for pharmacologic stress test: Age related weakness/fatigue, vision impairment/right eye lost/[place] [address] CARDIAC NUCLEAR IMAGING REPORT Name: MORGAN GELLER Room: [facility]#: [id number] Admission: 03/15/20 Attend Phys: Florentin Guerra, Discharge: Date of : 35 Date of Service: 03/15/20 1753 Report #: [id number] Resting HR: 54 bpm Max Heart Rate (APMHR): 135 bpm Max HR Achieved: 96 bpm Target HR (85% APMHR): 114 bpm % of APMHR: 71 Recovery HR: 77 bpm BP Resting BP: 125/61 mmHg Max BP: 117/91 mmHg ECG Resting ECG: Sinus Rhythm, RBBB Stress ECG: Sinus Rhythm, RBBB ST Change: None Arrhythmia: None Recovery ECG: Sinus Rhythm, RBBB Recovery ST Change: None Recovery Arrhythmia: None Clinical Reason for Termination: Completed protocol Stress Symptoms: None Exercise duration: 00 min 00 sec Exercise capacity: 1.00 METs The patient tolerated Lexiscan infusion without significant cardiac symptoms. Nurse Comments AN 85 YEAR OLD MALE PRESENTED FOR A SITTING LEXISCAN R/T CARDIOMYOPATHY AND CHEST DISCOMFORT. TEST WELL TOLERATED. RECOVERY UNREMARKABLE. PATIENT WAS ESCORTED BY STAFF TO NUCLEAR MEDICINE FOR IMAGING. PATIENT WAS STABLE AND STATED HE FELT GOOD AT THAT TIME. Stress ECG Conclusion The baseline twelve-lead EKG shows sinus rhythm without significant ST segment change. Right bundle branch block noted. EKGs obtained during and post Lexiscan infusion showed sinus rhythm with no significant ST segment changes when compared to baseline. There were no stress-induced arrhythmias. NM EXAM: Myocardial Perfusion REST/STRESS Imaging Protocol: Rest Tc-99m/Stress Tc-99m 1 day Resting Data Rest SPECT myocardial perfusion imaging [place] [address] CARDIAC NUCLEAR IMAGING REPORT Name: MORGAN GELLER SOPHY Room: [facility]#: [id number] Admission: 03/15/20 Attend Phys: Florentin Guerra, Discharge: Date of : 35 Date of Service: 03/15/20 1753 Report #: [id number] position 30 minutes following the intravenous injection of 11.6 mCi of Tc-99m Sestamibi. Time of rest injection: 1405 Date: 03/15/2020 The images were gated to evaluate regional wall motion and calculate left ventricular ejection fraction. Administration Route: IV Administration Site: Right Hand Pharmacologic Stress Pharmacologic stress test was performed by injecting Regadenoson 0.4 mg IV push followed by the intravenous injection of 32.4 mCi of Tc-99m Sestamibi. Time of stress injection: 1535 Date: 03/15/2020 Administration Route: IV Administration Site: Right Hand Gated Stress SPECT was performed 40 minutes after stress injection. The images were gated to evaluate regional wall motion and calculate left ventricular ejection fraction. Stress only was performed in the Supine position. Study Quality Study: Good Artifact: No artifact Study Data At rest, the left ventricular ejection fraction was 33%.. Post stress, the left ventricular ejection was 48%.. TID = 0.95. Perfusion Perfusion images show a moderate sized severe intensity fixed defect involving the basal inferior and inferolateral wall without significant ischemia. There is a focal apical defect of moderate intensity that appears fixed. No reversible ischemia was identified. Wall Motion There is apical akinesis. The basal inferior and inferolateral wall is severely hypokinetic. 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 No areas of reversible ischemia were identified. Global LV systolic function appears mild to moderately decreased. This is not a high risk study. <Conclusion> The baseline twelve-lead EKG shows sinus rhythm without significant ST segment change. Right bundle branch block noted. EKGs obtained during and post Lexiscan infusion showed sinus rhythm with no significant ST segment changes when compared to baseline. There were no stress-induced arrhythmias. <ELECTRONICALLY SIGNED> By: Florentin Guerra MD, FACC 03/15/201752 52 52 Florentin Guerra MD, FACC /INF
== END ==
LOC: M.CRD 02-24 12:44
PROVIDERS: ATTEND Internal Medicine Cardiovascular Disease
DX: I08.3 Combined rheumatic disorders of mitral, aortic and tricuspid valves (principal); I42.9 Cardiomyopathy, unspecified; R07.89 Other chest pain; R94.31 Abnormal electrocardiogram [ECG] [EKG]; R55 Syncope and collapse; I20.9 Angina pectoris, unspecified

== ENCOUNTER 2020-12-30 19:01 | Emergency (ER) | payer MEDICARE, OTHER ==
[~2020-12-30] VITALS: Ht 177.8 cm; Wt 87.1 kg
[2020-12-30 20:54] LABS: ABSOLUTE BASOPHILS 0.1 thou/uL (0.0-0.2); ABSOLUTE EOSINOPHILS 0.2 thou/uL (0.0-0.7); ABSOLUTE LYMPHOCYTES 0.7 thou/uL (0.8-5.3); ABSOLUTE MONOCYTES 0.6 thou/uL (0.0-1.2); BASOPHILS 1.3 %; EOSINOPHILS 2.9 %; HEMOGLOBIN 13.1 gm/dL (14.0-18.0); LYMPHOCYTES 9.7 %; MCH 31.9 pg (26.0-34.0); MCHC 33.5 g/dL (28.0-37.0); MCV 95.3 fL (80.0-100.0); MONOCYTES 7.3 %; MPV 9.1 fl. (7.2-11.1); NUCLEATED RBCS 0 /100WBC; PLATELET COUNT* 142 thou/uL (150-400); POLYS 78.8 %; RBC 4.09 mil/uL (4.50-6.00); RDW-CV 14.3 % (10.5-14.5); WBC 7.6 thou/uL (4.0-11.0)
[2020-12-30 20:58] LABS: POTASSIUM 3.9 mmol/L (3.5-5.1)
[2020-12-30 21:03] LABS: ALBUMIN 3.4 g/dL (3.4-5.0); TOTAL BILIRUBIN 0.7 mg/dL (<0.1-1.0); TOTAL PROTEIN 5.9 g/dL (6.4-8.2)
[2020-12-30 21:31] VITALS: BP 98/58
--- NOTE | 2020-12-31 10:00 | EKG ---
[place] [address] ELECTROCARDIOGRAM REPORT Name: MORGAN GELLER Room: [facility]#: [id number] Admission: 12/30/20 Attend Phys: Discharge: 12/30/20 Date of : 35 Date of Service: 12/30/201938 Report #: [id number] THIS REPORT FOR: //name// 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: LAYNE Mazariegos : 1935 Requested By: Isis Stearns Order Number: [id number] MD: Agusto Callejas Measurements Intervals [place] Rate: 74 P: 9 MA: 146 QRS: -55 QRSD: 116 T: 117 QT: 421 QTc: 467 Interpretive Statements Sinus rhythm Atrial premature complex Left anterior fascicular block Abnormal T, consider ischemia, lateral leads Baseline wander in lead(s) V3,V4,V5,V6 Compared to ECG 02/15/2020 23:53:13 Atrial premature complex(es) now present Sinus arrhythmia no longer present Ventricular premature complex(es) no longer present Electronically Signed On 12-31-2020 10:00:09 CDT by Agusto Callejas [email or web address] <ELECTRONICALLY SIGNED> By: Agusto Callejas MD, [facility] 12/31/20 1000 38 38 Agusto Callejas MD, [facility] /EPI
== END 2020-12-30 21:31 | disposition home or self-care (01) ==
LOC: M.ERS 19:01
PROVIDERS: Personal Emergency Response Attendant
DX: S41.112A Laceration without foreign body of left upper arm, initial encounter (principal); S80.212A Abrasion, left knee, initial encounter; S00.81XA Abrasion of other part of head, initial encounter; E78.00 Pure hypercholesterolemia, unspecified; N40.0 Benign prostatic hyperplasia without lower urinary tract symptoms; Z87.891 Personal history of nicotine dependence; W01.0XXA Fall on same level from slipping, tripping and stumbling without subsequent striking against object, initial encounter; Y93.89 Activity, other specified; Y92.89 Other specified places as the place of occurrence of the external cause; Y99.8 Other external cause status